=== PATIENT | female | born 1950 | race Caucasian/White ===

== ENCOUNTER → 2017-04-24 | Outpatient (CLI) | payer OTHER ==
[2016-04-24 13:15] VITALS: BP 135/82; PULSE 75
[~2017-04-24] MED LIST: ATOR-24 PO; CETI10TA84 PO; DIPH25TA24 PO; LEVO25TA5 PO
[2017-04-24 13:01] VITALS: BP 114/72; PULSE 68; TEMP 37; O2SAT 97
--- NOTE | 2017-04-24 13:37 | Radiation Oncology Follow-Up ---
Radiation Oncology Follow-Up Date of Visit Apr 24, 2017. Reason For Visit Annual follow up Radiation Completion Date 09/09/14 Diagnosis (1) Tongue carcinoma Status: Resolved Onset Date: 03/15/2014 Location: left lateral tongue Histology Subtype: Squamous cell ca Stage: ll Permanent Comment: Lesion left lateral tongue Status post biopsy 03/15/2014 positive for squamous cell carcinoma status post left hemiglossectomy with modified radical neck dissection levels 1 through 4 Pathologic stage [id number] Status post completion of radiation therapy 09/09/2014 received 6000 cGy Last Edited By: Sandra Guallpa on Apr 19, 2015 16:22 Interim History She has been doing well over this past year. When she saw her dentist there was a change in the upper inner portion of the mouth. She did see ENT. A mild erythema was noted on the medial side of the right maxillary molar. She's noticed no tenderness. She's had no pain in regards to her teeth. Her appetite is good and weight is stable. She continues to feel that her taste is approximate 50% of what it used to be. She did state that she is now able to taste Gilbert pedicles. She could not take these before. She is unable to taste sweet flavors. The xerostomia is unchanged. She denies any discomfort with swallowing. Allergies Coded Allergies: Aspirin (Unverified Allergy, Severe, swelling lips,eyes tongue, 07/07/14) Chocolate (Unverified Allergy, Intermediate, hives, 07/07/14) Penicillins (Unverified Allergy, Unknown, syncopy, 07/07/14) Mercury (Unverified Adverse Reaction, Unknown, possible contributed to mouth lesions, 07/07/14) Uncoded Allergies: dairy products (Allergy, Mild, hives, 07/07/14) dental amalgam (Adverse Reaction, Unknown, possible caused mouth lesions, ) Home Medications Scheduled Atorvastatin (Lipitor), 1 TAB PO HS Levothyroxine Sodium (Levothyroxine Sodium), 1 TAB PO DAILY Review of Systems Gastrointestinal: Symptoms: WNL Oral: Symptoms: No Problems Other Oral Symptoms: Altered taste still persists to a degree; Respiratory: Symptoms: WNL Urinary: Symptoms: WNL Skin: Symptoms: No Problems Physical Exam Vital Signs Date Time Temp Pulse Resp B/P (MAP) Pulse Ox O2 Delivery O2 Flow Rate FiO2 04/24/17 13:01 37.0 68 12 114/72 97 Pain: Patient Pain Scale: 0 - 10 Initial Pain Intensity: 0.0 Fatigue: None General Appearance: no apparent distress Eyes: normal inspection, EOMI ENT: hearing grossly normal, + pertinent finding (postoperative changes are noted of her chin. There are postoperative changes of the tongue. There is no palpable or visible lesions of the tongue. There are no lesions of the floor of the mouth or buccal mucosa. There is no swelling or erythema noted in the area of her molar. There is some mild retraction of the gumline around the inner upper right posterior molar. There are no visible lesions.) Neck: no adenopathy, thyroid normal Respiratory/Chest: lungs clear, no respiratory distress, no accessory muscle use Cardiovascular: regular rate, rhythm, no gallop, no murmur Neurologic/Psychiatric: no motor/sensory deficits, alert, normal mood/affect Skin: warm/dry Assessment & Plan Plan: Continue regular follow-up with her primary care physician and ENT. 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 We discussed prevention of this issue following dental procedure. We asked her to return to our office in 1 year. She may call if she has any questions or concerns in the interim. Total Time In Follow-Up I spent 20 minutes speaking to the patient and performing examination. I spent 15 minutes reviewing information completing this note. Copy To Richard Bravo M.D.; Kasi Herman D.O.
== END | disposition home or self-care (01) ==
LOC: C.ONC 12:39
PROVIDERS: ATTEND Physician Assistant Medical
DX: Z08 Encounter for follow-up examination after completed treatment for malignant neoplasm (principal); Z92.3 Personal history of irradiation; Z85.810 Personal history of malignant neoplasm of tongue